=== PATIENT | male | born 1955 | race Caucasian/White ===

== ENCOUNTER 2023-08-25 20:11 | Emergency (ER) | payer MEDICARE, MEDICAID ==
[~2023-08-25] VITALS: Ht 177.8 cm; Wt 8.6 kg
[2023-08-25 21:22] LABS: BASOPHILS % (AUTO) 0.4 % (0.0-2.0); EOSINOPHILS # (AUTO) 0.1 K/uL (0.0-0.7); EOSINOPHILS % (AUTO) 3.1 % (0.0-7.0); HEMATOCRIT 37.4 % (36.7-47.1); HEMOGLOBIN 12.7 g/dL (12.5-16.3); LYMPHOCYTES # (AUTO) 1.2 K/uL (0.8-4.8); LYMPHOCYTES % (AUTO) 25.6 % (20.5-51.5); MEAN CORPUSCULAR HEMOGLOBIN 32.2 uug (23.8-33.4); MEAN CORPUSCULAR HGB CONC 34 g/dL (32.5-36.3); MEAN CORPUSCULAR VOLUME 94.8 fL (73.0-96.2); MONOCYTES # (AUTO) 0.7 K/uL (0.1-1.30); MONOCYTES % (AUTO) 13.7 % (0.0-11.0); NEUTROPHILS # (AUTO) 2.7 K/uL (1.8-8.9); NEUTROPHILS % (AUTO) 57.2 % (38.5-71.5); PLATELET COUNT (AUTO) 161 K/uL (152-348); RED BLOOD CELL COUNT(AUTO) 3.95 MIL/uL (4.06-5.63); RED CELL DISTRIBUTION WIDTH 14.2 % (12.1-16.2); WHITE BLOOD COUNT (AUTO) 4.8 K/uL (3.6-10.2)
[2023-08-25 21:23] LABS: DIFFERENTIAL COMMENT 1
[2023-08-25 21:30] LABS: CALCIUM 9.3 mg/dL (8.5-10.1); CARBON DIOXIDE 28 mmol/L (21-32); CHLORIDE 106 mmol/L (98-107); CREATININE 1.1 mg/dL (0.6-1.3); GLUCOSE 100 mg/dL (74-106); POTASSIUM 4.9 mmol/L (3.5-5.1); SODIUM SERUM 142 mmol/L (136-145); UREA NITROGEN, BLOOD 20 mg/dL (7-18)
[2023-08-25 21:42] LABS: ALANINE AMINOTRANSFERASE 14 U/L (16-63); ALBUMIN 3.8 g/dL (3.4-5.0); ALKALINE PHOSPHATASE 69 U/L (50-136); ASPARTATE AMINOTRANSFERASE 18 U/L (15-37); BILIRUBIN,DIRECT 0.3 mg/dL (0.0-0.2); BILIRUBIN,TOTAL 1.4 mg/dL (0.2-1.0); NT-PRO BNP 635 pg/mL (0-125); TOTAL PROTEIN, SERUM 7.8 g/dL (6.4-8.2)
[2023-08-25 23:03] VITALS: BP 130/80; TEMP 97.8; O2SAT 98
== END 2023-08-25 23:03 | disposition home or self-care (01) ==
LOC: ER 20:20
DX: R07.89 Other chest pain (principal); R06.00 Dyspnea, unspecified; R60.1 Generalized edema; R03.0 Elevated blood-pressure reading, without diagnosis of hypertension; Z98.890 Other specified postprocedural states
CPT/HCPCS: 36415; 71045; 84484; 85025; 85730; 93005; A4606; A4663